=== PATIENT | female | born 1950 | race Caucasian/White ===

== ENCOUNTER → 2024-04-18 | Outpatient (REF) | payer MEDICARE ==
[~2024-04-18] MED LIST: COQ-10 PO; FISH OIL PO; LEVOTHYROXINE PO; MULTIVITAMIN PO; NIACIN PO; PRAVASTATIN PO; VITAMIN B-121000 MCG PO; tumeric PO
== END ==
LOC: US 09:43
PROVIDERS: ATTEND Family Medicine
DX: R17 Unspecified jaundice (principal)
CPT/HCPCS: 76705

== ENCOUNTER → 2024-09-28 | Day surgery (SDC) | payer MEDICARE ==
[2024-09-19 13:13] LABS: BASOPHILS % 1.4 % (0.0-1.0); EOSINOPHILS % 4.4 % (0.0-6.0); LYMPHOCYTES % 23.7 % (18.0-39.1); MONOCYTES % 9.3 % (4.4-11.3); NEUTROPHILS % 60.9 % (38.7-80.0); RED CELL DISTRIBUTION WIDTH 12.9 % (11.7-14.4)
[2024-09-19 13:53] LABS: EST GLOMERULAR FILTRATION RATE 49.0 ML/MIN (>=60)
[~2024-09-28] MED LIST changes: +CALCIUM PO; +CRANBERRY200 MG PO; +CRESTOR40 MG PO; +FAMOTIDINE20 MG PO; +LIDOCAINE HCL 2% LOCAL INJ 5 ML SDV VIAL INJ ONE; +ONDANSETRON HCL INJ 2MG/ML 2ML 2 MG/ML VIAL ONE; +PROPOFOL IV EMULSION 10 MG/ML 20 ML VIAL ONE; +VIT D3 PO
[2024-09-28] MEDS: LACTATED RINGER'S 1,000 ML ONE (06:48)
[2024-09-28 09:43] VITALS: TEMP 98.9
[2024-09-28 10:15] VITALS: BP 155/73; PULSE 63; RESP 16; O2SAT 98
== END | disposition home or self-care (01) ==
LOC: OR 06:25
PROVIDERS: ATTEND Surgery
DX: K57.30 Diverticulosis of large intestine without perforation or abscess without bleeding (principal); E78.5 Hyperlipidemia, unspecified; E03.9 Hypothyroidism, unspecified; K21.9 Gastro-esophageal reflux disease without esophagitis; Z88.0 Allergy status to penicillin; Z88.2 Allergy status to sulfonamides; Z79.890 Hormone replacement therapy; Z79.899 Other long term (current) drug therapy; Z90.49 Acquired absence of other specified parts of digestive tract; Z01.810 Encounter for preprocedural cardiovascular examination; Z01.812 Encounter for preprocedural laboratory examination
CPT/HCPCS: 36415; 45378; 71046; 80053; 85025; 93005; J2003; J2405